=== PATIENT | male | born 1990 | race Caucasian/White ===

== ENCOUNTER 2024-11-10 08:56 | Outpatient (CLI) | payer OTHER, SELFPAY ==
--- NOTE | 2024-11-10 09:15 | MR_ITS ---
EXAM: MRI of the RIGHT KNEE, without contrast CLINICAL INFORMATION: Male, 34 years old, with right knee pain. INDICATION: Evaluate for meniscal tear. PRIOR SURGERY: None reported. PLAIN FILMS: None available. COMPARISONS: No prior MRIs available. TECHNICAL INFORMATION: Using a 1.5T MR scanner and a localizing surface coil: sagittals: PD, PDFS coronals: PD, T2FS axials: PD, PDFS SEDATION: None CONTRAST: None FINDINGS: Knee joint: Effusion: Small right knee effusion. Popliteal cyst: None. Loose bodies: None. Subcutaneous and extra-articular soft tissues: Unremarkable. Ligaments: ACL: Intact ACL anteromedial and posterolateral bundles, without sprain or tear. PCL: Intact PCL, without acute or chronic injury. MCL: Intact MCL superficial and deep layers, without injury. LCL: Intact LCL, without injury. Posterolateral corner: No posterolateral corner soft tissue injury. Popliteus, biceps femoris, iliotibial band, popliteofibular ligament and lateral gastrocnemius are intact. Posteromedial corner: No posteromedial corner soft tissue injury. Semimembranosus, pes anserine tendons and posterior oblique ligament are without injury, tendinopathy or bursitis. Extensor mechanism: Patellar tendon: Intact, without tendinopathy. Quadriceps tendon: Intact, without tendinopathy. Retinacula: Medial and lateral retinacula are intact. Fat pads: Unremarkable infrapatellar Hoffa's, quadriceps and prefemoral fat pads. Medial compartment: Medial meniscus: Partial thickness radial tearing of the medial meniscal body over a length of 3 mm, involving the inner one third of the meniscus (coronal STIR series 8 image 18, sagittal PDFS series 6 image 24, and axial T2FS series 4 image 23). Meniscal extrusion measures 3 mm. No parameniscal cyst. Medial femoral condyle: Approximately 7 x 7 mm near full-thickness chondral defect of the lateral aspect of the central surface of the medial femoral condyle (sagittal PDFS series 6 image 10 and coronal STIR series 8 image 20). Medial tibial plateau: No chondromalacia or osteochondral abnormality. Lateral compartment: Lateral meniscus: No articular surface, meniscosynovial junction or root tear. No displacement, extrusion or parameniscal cyst. Lateral femoral condyle: No chondromalacia or osteochondral abnormality. Lateral tibial plateau: No chondromalacia or osteochondral abnormality. Patellofemoral joint: Patella: Grade I chondromalacia of the patella (axial T2FS series 4 image 12). Trochlea: No chondromalacia or osteochondral abnormality. Proximal tibiofibular joint: Unremarkable, without evidence of ligament sprain injury, joint effusion or adjacent marrow edema. Bones: No stress/occult fractures or other marrow edema/pathology. IMPRESSION: 1. Focal partial-thickness radial tearing of the medial meniscal body segment involving the inner one third of the meniscus over a length of 3 mm, 3 mm of meniscal extrusion. 2. Approximately 7 x 7 mm near full-thickness chondral defect of the lateral aspect of the central surface of the medial femoral condyle. 3. Grade I chondromalacia of the patella, without reactive osseous changes. 4. Small knee joint effusion. No popliteal (Smalls's) cyst. 5. No cruciate or collateral ligament sprain/tear. 6. No lateral meniscal tear or osteochondral abnormality of the lateral compartment. BC Electronically signed on 11/11/2024 9:25:00 AM by Christopher Epperson M.D.
== END 2024-11-10 08:57 | disposition home or self-care (01) ==
PROVIDERS: PCP Nurse Practitioner Family; Visit Provider Orthopaedic Surgery
DX: M25.561 Pain in right knee (principal); S83.241A Other tear of medial meniscus, current injury, right knee, initial encounter; M22.41 Chondromalacia patellae, right knee; M25.461 Effusion, right knee; S89.91XA Unspecified injury of right lower leg, initial encounter
CPT/HCPCS: 73721

== ENCOUNTER 2024-12-01 15:55 | Outpatient (CLI) | payer OTHER, SELFPAY | END 2024-12-01 15:56 | disposition home or self-care (01) | PROVIDERS: PCP Nurse Practitioner Family; Visit Provider Nurse Practitioner Family | DX: Z01.818 Encounter for other preprocedural examination (principal) | CPT/HCPCS: 80048; 85025 ==

== ENCOUNTER 2024-12-05 09:20 | Day surgery (SDC) | payer OTHER, SELFPAY ==
[2024-12-05] VITALS (12 sets, daily range): BP systolic 80–134; BP diastolic 52–94; PULSE 60–75; RESP 12–16; TEMP 36.3–36.8; O2SAT 93–100; BMI 27.0
[2024-12-05] MEDS: LACTATED RINGERS 1000 ML 1,000 ML 100 ML IV ×2 (10:01→15:28)
[2024-12-05] MEDS: SODIUM CHLORIDE 0.9 % (FLUSH) 10 ML SYRINGE IVF (10:02)
--- NOTE | 2024-12-05 10:45 | P.ORPRC_ITS ---
Procedure Note Date of procedure: 12/05/24 Procedure: PREOPERATIVE DIAGNOSIS: 1. Right knee medial meniscus tear 2. Right knee femoral condyle chondral defect POSTOPERATIVE DIAGNOSIS: 1. Right knee medial meniscus tear 2. Right knee femoral condyle chondral defect PROCEDURE: 1. Right knee arthroscopic partial medial menisectomy 2 Right knee arthroscopic medial femoral condyle chondroplasty 3. Right knee biopsy SURGEON: Jayro Oliva M.D. INFORMATION STRATEGIST: Keren John P.A.-C.. Of note, an certified medical assistant was critical for this case to aid in patient positioning, knee manipulation, instrument exchange, and closure. ANESTHESIA: Spinal EBL: 0 mL TOURNIQUET: 39 minutes at 250 mmHg COMPLICATIONS: None SPECIMENS: JAIDEN cartilage biopsy INDICATIONS: Adolfo 34-year-old male who developed medial-sided right knee pain following a work related injury when trying to lift a heavy object approximately 2 months ago. Symptoms not improved with conservative management. MRI was obtained which revealed a radial tear of the medial meniscus and a chondral injury of the medial femoral condyle. Recommendations subsequent made for surgical intervention consisting of right knee arthroscopic partial medial meniscectomy versus meniscus repair, medial femoral condyle chondroplasty, and possible JAIDEN biopsy. Prior to procedure, risks and benefits were discussed with patient, all questions were answered, and informed consent was obtained. FINDINGS: Arthroscopic examination revealed a radial flap tear involving the posterior horn of the medial meniscus. There is also a near full-thickness chondral defect on the lateral aspect of the medial femoral condyle which charles sured 10 mm x 15 mm. Cartilage in the medial compartment was otherwise normal in appearance. Small amount of grade 3 chondromalacia involving the superior medial aspect of the patella. Normal appearing cartilage in the lateral compartment. ACL is intact. PCL was intact. Lateral meniscus was intact. DESCRIPTION OF PROCEDURE: Patient was seen preoperatively and operative site was marked. Patient was then taken to the operating room where spinal anesthesia was administered. He was then placed in the supine position on the OR table. He was given 2 g Ancef IV preoperatively for prophylaxis. A tourniquet was placed on the patient's right thigh. Operative leg was placed in the leg alvarado and the table was dropped. The right lower extremity was then prepped and draped in usual sterile fashion. A surgical time-out was performed confirming patient identity, surgical site, and procedure. The right lower extremity was exsanguinated and tourniquet inflated. Anteromedial, anterolateral portal sites were injected with 0.5% Marcaine with epinephrine. Anterolateral portal was established with 11 blade. The anterior medial portal was established after localization of spinal needle. Diagnostic arthroscopy was performed with findings as noted above. Attention was 1st directed to the chondral defect which was located on the far lateral aspect of the weight-bearing portion of the medial femoral condyle. Base of lesion was debrided sharply using a ring curette. The rim of the lesion was then debrided with ring curette back to stable border. After debridement, lesion measured 10 mm x 15 mm. Attention was then directed to the medial meniscus. There is noted to be a flap tear involving the inner 3rd of the posterior horn of the medial meniscus. This tear was not deemed repairable. Flap was debrided using a combination of arthroscopic biters and motorized shaver. Remnant meniscus was contoured to create smooth transition to normal meniscal tissue. Following this, the meniscus was re-probed and found to be stable. Approximately 10 % of the overall meniscus was resected, but of the portion that was worked on, approximately 25 % of the depth was resected. Attention was then directed to the JAIDEN biopsy. This was performed using a ring curette removing 3 small tick tack size pieces of cartilage from the intercondylar rim of the lateral femoral condyle. Cartilage pieces were placed into the JAIDEN biopsy kit for transfer. At this stage, the shaver was reinserted into the suprapatellar pouch and all remaining meniscal debris was evacuated. Instruments were removed, excess fluid was drained, and closure performed with 3-0 nylon sterile dressings were applied, the tourniquet deflated, and the patient was awoken from anesthesia and transferred to the PACU in stable condition. PLAN: 1. Weightbear as tolerated right lower extremity. Crutch as needed. 2. Ice, elevation, acetominophen and/or ibuprofen, and Percocet for pain as needed. 3. Knee range of motion and quad sets/straight leg raise regularly 4. Follow up in orthopedic clinic in 1-2 weeks for a wound check.
--- NOTE | 2024-12-05 10:45 | W.PM.H&PU ---
History & Physical Update History & Physical Update H&P Reviewed and patient assessed: No changes noted
--- NOTE | 2024-12-05 13:51 | SUR.OPER ---
PATIENT QUESTIONS ANSWERED SATISFACTORILY PREOPERATIVELY.? PATIENT BROUGHT TO OR #2 PER CART.? Patient positioned supine on OR #2 bed.? The perioperative?team supported arms bilaterally on arm boards.? Final approval of positioning by surgeon.? CONTINUOUS IRRIGATION OF THE RIGHT KNEE DURING THE PROCEDURE WITH NACL.
--- NOTE | 2024-12-05 14:34 | P.ANES_ITS ---
Anesthesia Charges Start Date/Time Anesthesia Start Date: 12/05/24 Anesthesia Start Time: 13:07 Stop Date/Time Anesthesia Stop Date: 12/05/24 Anesthesia Stop Time: 14:30 Coding CPT Codes CPT Codes: ANESTH KNEE ARTHROPLASTY - 27084 ([id number]) P1 - NORMAL HEALTHY PATIENT, QK - PAPER FOLDING MACHINE OPERATOR 2-4 CNCRNT JANESSA PROC, QX - MEASUREMENT AND SENSING TECHNICIAN SVRee W/ MED DIRECTION
--- NOTE | 2024-12-05 14:34 | W.ANESCHARGE ---
Anesthesia Charges Start Date/Time Anesthesia Start Date: 12/05/24 Anesthesia Start Time: 13:07 Stop Date/Time Anesthesia Stop Date: 12/05/24 Anesthesia Stop Time: 14:30 Coding CPT Codes CPT Codes: ANESTH KNEE ARTHROPLASTY - 55701 ([id number]) P1 - NORMAL HEALTHY PATIENT, QK - ANGLESMITH 2-4 CNCRNT JANESSA PROC, QX - FRUIT HARVESTER SVRee W/ MED DIRECTION
--- NOTE | 2024-12-05 14:35 | P.ANES_ITS ---
Anesthesia Charges Start Date/Time Anesthesia Start Date: 12/05/24 Anesthesia Start Time: 13:07 Stop Date/Time Anesthesia Stop Date: 12/05/24 Anesthesia Stop Time: 14:30 Coding CPT Codes CPT Codes: ANESTH KNEE JOINT SURGERY - 21160 ([id number]) QK - WATER RESOURCE PROJECT MANAGER 2-4 CNCRNT ANES PROC, QX - SWATCH FOLDER SVC W/ MD MED DIRECTION, P1 - NORMAL HEALTHY PATIENT
--- NOTE | 2024-12-05 14:35 | W.ANESCHARGE ---
Anesthesia Charges Start Date/Time Anesthesia Start Date: 12/05/24 Anesthesia Start Time: 13:07 Stop Date/Time Anesthesia Stop Date: 12/05/24 Anesthesia Stop Time: 14:30 Coding CPT Codes CPT Codes: ANESTH KNEE JOINT SURGERY - 05040 ([id number]) QK - KILN LABOURER 2-4 CNCRNT ANES PROC, QX - TILE SORTER SVC W/ MD MED DIRECTION, P1 - NORMAL HEALTHY PATIENT
--- NOTE | 2024-12-05 15:40 | SUR.OPER ---
CARTILAGE BIOPSY HARVESTED AT 14:13. BIOPSY PLACED IN THE MEDIUM AT 14:16. THE BIOPSY IN THE MEDIUM IS PLACED IN THE SHIPPING CONTAINER WITH A FACE SHEET AND THE BIOPSY TRANSMITTAL NOTICE INSIDE AND THE SHIPPING CONTAINER IS TAPED SHUT. THE MACHINE WELT BUTTER, OSCAR AGUILAR RN, IS NOTIFIED ABOUT THE CONTAINER. A TREE INSPECTOR IS SCHEDULED THROUGH [facility] TO SILK CREPE MACHINE OPERATOR THE PACKAGE AROUND 18:30. THE TREE INSPECTOR IS INSTRUCTED TO COME TO THE EMERGENCY DEPARTMENT DOORS AND ASK THE E.D. STAFF TO CONTACT OSCAR AGUILAR FOR THE SILK CREPE MACHINE OPERATOR. IN DISCUSSION WITH OSCAR AGUILAR, PACKAGE IS LEFT ON THE SAME DAY SURGERY DESK FOR SILK CREPE MACHINE OPERATOR WITH [employer] AGUILAR.
--- NOTE | 2024-12-05 16:01 | SUR.PHASEII ---
pt tolerated crackers and water. Denies pain. Dressing c/d/i. Reviewed d/c instructions with pt and . All question answered.
== END 2024-12-05 16:08 | disposition home or self-care (01) ==
LOC: OR 09:21
PROVIDERS: PCP Nurse Practitioner Family; Visit Provider Orthopaedic Surgery
PROC: (CPT 29870; principal; 2024-12-05 12:15)
DX: S83.241A Other tear of medial meniscus, current injury, right knee, initial encounter (principal); M24.19 Other articular cartilage disorders, other specified site
CPT/HCPCS: 29881; 29870; 01400; 01402; J1100; J2250; J2371; J2405; J2704; J3010; J7120